=== PATIENT | male | born 1960 | race Caucasian/White ===

== ENCOUNTER 2023-02-01 19:43 | Emergency (ER) | payer MEDICARE, MEDICAID ==
[~2023-02-01] VITALS: Ht 172.7 cm; Wt 92.1 kg
[2023-02-01] MEDS ORDERED: MELOXICAM15 MG PO (21:50)
== END 2023-02-01 21:57 | disposition home or self-care (01) ==
LOC: ED 19:43
DX: M25.551 Pain in right hip (principal); M25.561 Pain in right knee; F32.A Depression, unspecified; F41.9 Anxiety disorder, unspecified; Z88.0 Allergy status to penicillin

== ENCOUNTER → 2023-04-06 | Outpatient (CLI) | payer MEDICARE ==
[~2023-04-06] MED LIST: MELOXICAM15 MG PO
[2023-04-06 09:46] LABS: BASO # 0.1 10*3/uL (0.0-0.1); BASO % 0.8 % (0.0-1.0); EOS # 0.2 10*3/uL (0.0-0.4); EOS % 2.3 % (1.0-4.0); HEMATOCRIT 39.5 % (42.0-52.0); LYMPH # 1.7 10*3/uL (1.3-4.4); MEAN CELL VOLUME 98.5 fl (80.0-94.0); MEAN CORPUSCULAR HGB 33.9 pg (27.0-31.0); MEAN CORPUSCULAR HGB CONC 34.4 g/dl (33.0-37.0); MEAN PLATELET VOLUME 10.3 fl (9.6-12.3); MONO # 0.7 10*3/uL (0.1-1.0); MONO % 9.5 % (3.0-9.0); NEUT # 4.8 10*3/uL (2.3-7.9); PLATELET COUNT AUTOMATED 195 10*3/uL (130-400); RED BLOOD COUNT 4.01 10*6/uL (4.50-5.90); RED CELL DISTRI WIDTH 11.7 % (0-14.5); WHITE BLOOD COUNT 7.4 10*3/uL (4.8-10.8)
[2023-04-06 10:31] LABS: ALKALINE PHOSPHATASE 99 U/L (46-116); BUN 6 mg/dl (9-23); CHLORIDE 100 mmol/L (98-107); CHOLESTEROL 188 mg/dL (<200); LDL CHOLESTEROL 110 mg/dL (9-159); POTASSIUM 4.1 mmol/L (3.4-5.1); SGPT/ALT 38 U/L (5-49); TOTAL PROTEIN 7.5 gm/dL (6.0-8.0); TRIGLYCERIDES 162 mg/dl (<150)
== END | disposition home or self-care (01) ==
LOC: RESCLI 01:39
PROVIDERS: Student in an Organized Health Care Education/Training Program; ATTEND Internal Medicine
DX: F41.8 Other specified anxiety disorders (principal); M54.41 Lumbago with sciatica, right side; R26.2 Difficulty in walking, not elsewhere classified; F17.220 Nicotine dependence, chewing tobacco, uncomplicated; E78.5 Hyperlipidemia, unspecified; R73.09 Other abnormal glucose; Z88.0 Allergy status to penicillin; D53.9 Nutritional anemia, unspecified; Z82.49 Family history of ischemic heart disease and other diseases of the circulatory system; Z79.899 Other long term (current) drug therapy

== ENCOUNTER 2023-04-27 20:26 | Emergency (ER) | payer MEDICARE, MEDICAID ==
[~2023-04-27] VITALS: Ht 172.7 cm; Wt 97.5 kg
[2023-04-28] MEDS ORDERED: CEPHALEXIN500 M1 PO (16:16)
== END 2023-04-27 22:30 | disposition home or self-care (01) ==
LOC: ED 20:26
DX: S91.312A Laceration without foreign body, left foot, initial encounter (principal); Z88.0 Allergy status to penicillin; W22.09XA Striking against other stationary object, initial encounter; Y93.89 Activity, other specified; Y92.89 Other specified places as the place of occurrence of the external cause; Y99.8 Other external cause status

== ENCOUNTER 2023-04-28 14:23 | Emergency (ER) | payer MEDICARE, MEDICAID ==
[~2023-04-28] VITALS: Ht 172.7 cm; Wt 97.5 kg
[2023-04-28] MEDS ORDERED: CEPHALEXIN500 M1 PO (16:16)
== END 2023-04-28 16:43 | disposition home or self-care (01) ==
LOC: ED 14:23
DX: S91.312D Laceration without foreign body, left foot, subsequent encounter (principal); L03.116 Cellulitis of left lower limb; R58 Hemorrhage, not elsewhere classified; Z88.0 Allergy status to penicillin; W22.8XXD Striking against or struck by other objects, subsequent encounter

== ENCOUNTER → 2023-05-04 | Outpatient (CLI) | payer MEDICARE, MEDICAID ==
[~2023-05-04] MED LIST changes: +CEPHALEXIN500 M1 PO
== END | disposition home or self-care (01) ==
LOC: WOUNDCARE 03:25
PROVIDERS: ATTEND Nurse Practitioner Family
DX: S91.312A Laceration without foreign body, left foot, initial encounter (principal); R60.9 Edema, unspecified; L53.9 Erythematous condition, unspecified; X58.XXXA Exposure to other specified factors, initial encounter; Y93.89 Activity, other specified; Y92.89 Other specified places as the place of occurrence of the external cause; Y99.8 Other external cause status

== ENCOUNTER → 2023-05-07 | Outpatient (CLI) | payer MEDICARE, MEDICAID ==
[2023-05-07 12:27] LABS: BASO # 0.1 10*3/uL (0.0-0.1); BASO % 0.8 % (0.0-1.0); EOS # 0.2 10*3/uL (0.0-0.4); EOS % 2.6 % (1.0-4.0); HEMATOCRIT 41.2 % (42.0-52.0); LYMPH # 1.5 10*3/uL (1.3-4.4); LYMPH % 20.9 % (27.0-41.0); MEAN CORPUSCULAR HGB 33.3 pg (27.0-31.0); MEAN CORPUSCULAR HGB CONC 33.3 g/dl (33.0-37.0); MEAN PLATELET VOLUME 10.4 fl (9.6-12.3); MONO # 0.8 10*3/uL (0.1-1.0); MONO % 10.9 % (3.0-9.0); NEUT # 4.7 10*3/uL (2.3-7.9); NEUT % 64.3 % (47.0-73.0); PLATELET COUNT AUTOMATED 194 10*3/uL (130-400); RED BLOOD COUNT 4.12 10*6/uL (4.50-5.90); WHITE BLOOD COUNT 7.4 10*3/uL (4.8-10.8)
[2023-05-07 12:50] LABS: ALKALINE PHOSPHATASE 90 U/L (46-116); BUN 6 mg/dl (9-23); CHLORIDE 104 mmol/L (98-107); POTASSIUM 4.4 mmol/L (3.4-5.1); SGPT/ALT 41 U/L (5-49); TOTAL PROTEIN 7.6 gm/dL (6.0-8.0)
== END | disposition home or self-care (01) ==
LOC: LAB 11:56
PROVIDERS: Nurse Practitioner Family
DX: E11.9 Type 2 diabetes mellitus without complications (principal); D64.9 Anemia, unspecified

== ENCOUNTER → 2023-05-11 | Outpatient (CLI) | payer MEDICARE, MEDICAID | END | disposition home or self-care (01) | LOC: WOUNDCARE 04:56 | PROVIDERS: ATTEND Nurse Practitioner Family | DX: S91.312D Laceration without foreign body, left foot, subsequent encounter (principal); L53.9 Erythematous condition, unspecified; R60.9 Edema, unspecified; X58.XXXD Exposure to other specified factors, subsequent encounter ==

== ENCOUNTER 2023-06-15 20:05 | Emergency (ER) | payer MEDICARE, OTHER ==
[~2023-06-15] VITALS: Ht 152.4 cm; Wt 88.0 kg
== END 2023-06-16 00:40 | disposition home or self-care (01) ==
LOC: ED 20:05
DX: S00.93XA Contusion of unspecified part of head, initial encounter (principal); M25.551 Pain in right hip; G89.29 Other chronic pain; F32.A Depression, unspecified; F41.9 Anxiety disorder, unspecified; Z88.0 Allergy status to penicillin; W01.10XA Fall on same level from slipping, tripping and stumbling with subsequent striking against unspecified object, initial encounter; Y93.01 Activity, walking, marching and hiking; Y92.009 Unspecified place in unspecified non-institutional (private) residence as the place of occurrence of the external cause; Y99.8 Other external cause status; F10.10 Alcohol abuse, uncomplicated; Y90.0 Blood alcohol level of less than 20 mg/100 ml

== ENCOUNTER → 2023-06-22 | Outpatient (CLI) | payer MEDICARE, OTHER | END | disposition home or self-care (01) | LOC: RESCLI 02:32 | PROVIDERS: ATTEND Internal Medicine | DX: M25.551 Pain in right hip (principal); M54.9 Dorsalgia, unspecified; E78.5 Hyperlipidemia, unspecified; R26.81 Unsteadiness on feet; F41.8 Other specified anxiety disorders; K21.9 Gastro-esophageal reflux disease without esophagitis; F32.A Depression, unspecified; Z79.899 Other long term (current) drug therapy; Z87.891 Personal history of nicotine dependence ==

== ENCOUNTER 2023-06-26 18:15 | Emergency (ER) | payer MEDICARE, OTHER ==
[~2023-06-26] VITALS: Ht 172.7 cm; Wt 93.0 kg
[2023-06-26] MEDS ORDERED: Bacitracin Zinc 14 GM TUBE T ONE (19:10)
== END 2023-06-26 19:36 | disposition home or self-care (01) ==
LOC: ED 18:15
DX: S61.011A Laceration without foreign body of right thumb without damage to nail, initial encounter (principal); F32.A Depression, unspecified; F41.9 Anxiety disorder, unspecified; Z88.0 Allergy status to penicillin; W26.8XXA Contact with other sharp object(s), not elsewhere classified, initial encounter; Y93.89 Activity, other specified; Y92.009 Unspecified place in unspecified non-institutional (private) residence as the place of occurrence of the external cause; Y99.8 Other external cause status

== ENCOUNTER 2023-08-13 13:16 | Emergency (ER) | payer MEDICARE ==
[~2023-08-13] VITALS: Ht 175.2 cm; Wt 89.4 kg
[~2023-08-13 13:16] MED LIST changes: +ATORVASTATIN CA20 M1 PO; +CYCLOBENZAPRINE5 M3 PO; +FLUOXETINE HCL40 MG PO; +NAPROXEN500 MG PO; +OMEPRAZOLE MAGN20 MG PO; +VITAMIN D3125 MC1 PO
[2023-08-13] MEDS ORDERED: MULTIVITAMIN CONCENTRATE (IV) 10 ML,Thiamine 100 MG,FOLIC ACID 1 MG in SODIUM CHLORIDE ... IV ONE (13:25)
[2023-08-13 13:47] LABS: BASO # 0.1 10*3/uL (0.0-0.1); EOS # 0.1 10*3/uL (0.0-0.4); EOS % 1.3 % (1.0-4.0); HEMATOCRIT 43.1 % (42.0-52.0); LYMPH # 2.3 10*3/uL (1.3-4.4); MEAN CELL VOLUME 102.1 fl (80.0-94.0); MEAN CORPUSCULAR HGB 33.2 pg (27.0-31.0); MEAN CORPUSCULAR HGB CONC 32.5 g/dl (33.0-37.0); MEAN PLATELET VOLUME 10.6 fl (9.6-12.3); MONO # 0.6 10*3/uL (0.1-1.0); NEUT % 56.6 % (47.0-73.0); PLATELET COUNT AUTOMATED 182 10*3/uL (130-400); RED BLOOD COUNT 4.22 10*6/uL (4.50-5.90); RED CELL DISTRI WIDTH 12.4 % (0-14.5)
[2023-08-13 14:17] LABS: BILIRUBIN Negative (Negative); BLOOD Negative (Negative); CLARITY Clear (Clear); COLOR Yellow (Yellow); GLUCOSE Negative (Negative); KETONE Trace (Negative); LEUKO ESTERASE Negative (Negative); NITRITE Negative (Negative); PH 5.5 (4.5-8.0); UROBILINOGEN 0.2 E.U./dl (0.0-1.0)
[2023-08-13 14:25] LABS: URINE AMPHETAMINES Negative (1000ng/ml); URINE BARBITURATES Negative (200ng/ml); URINE BENZODIAZEPINES Negative (200ng/ml); URINE CANNABINOIDS (THC) Positive (50ng/ml); URINE COCAINE Negative (300ng/ml); URINE METHADONE Negative (300ng/ml); URINE OPIATES Negative (300ng/ml); URINE PHENCYCLIDINE Negative (25ng/ml)
[2023-08-13 14:25] LABS: BUN 6 mg/dl (9-23); CHLORIDE 103 mmol/L (98-107); POTASSIUM 4.1 mmol/L (3.4-5.1)
[2023-08-13 14:26] LABS: MUCOUS 1+; WBC 0-2 wbc/hpf (0-5)
[2023-08-13 14:30] LABS: ETHYL ALCOHOL 351.3 mg/dl (<3)
== END 2023-08-14 10:26 | disposition home or self-care (01) ==
LOC: ED 13:16
PROVIDERS: Emergency Medicine
DX: F32.A Depression, unspecified (principal); F10.129 Alcohol abuse with intoxication, unspecified; F41.9 Anxiety disorder, unspecified; Z88.0 Allergy status to penicillin; Y90.8 Blood alcohol level of 240 mg/100 ml or more

== ENCOUNTER → 2023-08-24 | Outpatient (CLI) | payer MEDICARE, OTHER ==
[~2023-08-24] MED LIST changes: +[UNRECOGNIZED DRUG - OTHER] IM ONE
== END | disposition home or self-care (01) ==
LOC: RESCLI 03:56
PROVIDERS: ATTEND Student in an Organized Health Care Education/Training Program
DX: Z23 Encounter for immunization (principal); M17.11 Unilateral primary osteoarthritis, right knee; E78.5 Hyperlipidemia, unspecified; K21.9 Gastro-esophageal reflux disease without esophagitis; E66.9 Obesity, unspecified; F41.8 Other specified anxiety disorders; F32.A Depression, unspecified; F12.10 Cannabis abuse, uncomplicated

== ENCOUNTER → 2023-10-07 | Outpatient (CLI) | payer MEDICARE, OTHER ==
[~2023-10-07] MED LIST changes: -[UNRECOGNIZED DRUG - OTHER] IM ONE
[2023-10-07 14:14] LABS: BASO # 0.1 10*3/uL (0.0-0.1); EOS # 0.1 10*3/uL (0.0-0.4); EOS % 2.2 % (1.0-4.0); HEMATOCRIT 38.5 % (42.0-52.0); LYMPH # 1.3 10*3/uL (1.3-4.4); LYMPH % 26.7 % (27.0-41.0); MEAN CELL VOLUME 98.5 fl (80.0-94.0); MEAN CORPUSCULAR HGB 34.8 pg (27.0-31.0); MEAN CORPUSCULAR HGB CONC 35.3 g/dl (33.0-37.0); MEAN PLATELET VOLUME 10.9 fl (9.6-12.3); MONO # 0.6 10*3/uL (0.1-1.0); MONO % 11.3 % (3.0-9.0); NEUT # 2.9 10*3/uL (2.3-7.9); NEUT % 58.4 % (47.0-73.0); PLATELET COUNT AUTOMATED 148 10*3/uL (130-400); RED BLOOD COUNT 3.91 10*6/uL (4.50-5.90); RED CELL DISTRI WIDTH 13.2 % (0-14.5)
[2023-10-07 14:45] LABS: ALKALINE PHOSPHATASE 82 U/L (46-116); BUN 7 mg/dl (9-23); CHLORIDE 102 mmol/L (98-107); CHOLESTEROL 207 mg/dL (<200); LDL CHOLESTEROL 90 mg/dL (9-159); POTASSIUM 3.7 mmol/L (3.4-5.1); SGPT/ALT 47 U/L (5-49); TOTAL PROTEIN 7.6 gm/dL (6.0-8.0); TRIGLYCERIDES 130 mg/dl (<150)
== END | disposition home or self-care (01) ==
LOC: LAB 13:15
PROVIDERS: ATTEND Nurse Practitioner Family
DX: M43.17 Spondylolisthesis, lumbosacral region (principal); M25.551 Pain in right hip; R73.09 Other abnormal glucose; E78.5 Hyperlipidemia, unspecified; Z76.89 Persons encountering health services in other specified circumstances; M51.37 Other intervertebral disc degeneration, lumbosacral region

== ENCOUNTER → 2023-10-28 | Outpatient (CLI) | payer MEDICARE | END | disposition home or self-care (01) | LOC: LAB 10:54 | PROVIDERS: ATTEND Nurse Practitioner Family | DX: R32 Unspecified urinary incontinence (principal) ==

== ENCOUNTER 2023-10-29 14:32 | Emergency (ER) | payer MEDICARE ==
[~2023-10-29] VITALS: Ht 172.7 cm; Wt 77.1 kg
== END 2023-10-29 17:23 | disposition home or self-care (01) ==
LOC: ED 14:32
DX: S90.31XA Contusion of right foot, initial encounter (principal); F32.A Depression, unspecified; D64.9 Anemia, unspecified; F41.9 Anxiety disorder, unspecified; Z88.0 Allergy status to penicillin; Z87.891 Personal history of nicotine dependence; W19.XXXA Unspecified fall, initial encounter; Y93.89 Activity, other specified; Y92.39 Other specified sports and athletic area as the place of occurrence of the external cause; Y99.8 Other external cause status

== ENCOUNTER 2023-11-19 22:09 | Emergency (ER) | payer MEDICARE ==
[~2023-11-19] VITALS: Ht 172.7 cm; Wt 94.3 kg
[2023-11-19 22:59] LABS: BILIRUBIN Negative (Negative); BLOOD Negative (Negative); CLARITY Clear (Clear); COLOR Yellow (Yellow); GLUCOSE Negative (Negative); KETONE Trace (Negative); LEUKO ESTERASE Negative (Negative); NITRITE Negative (Negative); PH 5.5 (4.5-8.0); SPECIFIC GRAVITY <= 1.005 (1.001-1.030); UROBILINOGEN 0.2 E.U./dl (0.0-1.0)
[2023-11-19 23:06] LABS: URINE AMPHETAMINES Negative (1000ng/ml); URINE BARBITURATES Negative (200ng/ml); URINE BENZODIAZEPINES Negative (200ng/ml); URINE CANNABINOIDS (THC) Negative (50ng/ml); URINE COCAINE Negative (300ng/ml); URINE METHADONE Negative (300ng/ml); URINE OPIATES Negative (300ng/ml); URINE PHENCYCLIDINE Negative (25ng/ml)
[2023-11-19 23:06] LABS: BASO # 0.1 10*3/uL (0.0-0.1); BASO % 1.3 % (0.0-1.0); EOS # 0.1 10*3/uL (0.0-0.4); EOS % 1.5 % (1.0-4.0); HEMATOCRIT 40.2 % (42.0-52.0); LYMPH # 1.6 10*3/uL (1.3-4.4); LYMPH % 30.6 % (27.0-41.0); MEAN CELL VOLUME 102.8 fl (80.0-94.0); MEAN CORPUSCULAR HGB CONC 33.1 g/dl (33.0-37.0); MEAN PLATELET VOLUME 9.9 fl (9.6-12.3); MONO # 0.5 10*3/uL (0.1-1.0); NEUT # 3.1 10*3/uL (2.3-7.9); NEUT % 57.4 % (47.0-73.0); PLATELET COUNT AUTOMATED 154 10*3/uL (130-400); RED BLOOD COUNT 3.91 10*6/uL (4.50-5.90); RED CELL DISTRI WIDTH 12.8 % (0-14.5); WHITE BLOOD COUNT 5.3 10*3/uL (4.8-10.8)
[2023-11-19 23:07] LABS: WBC 0-2 wbc/hpf (0-5)
[2023-11-19 23:35] LABS: BUN 7 mg/dl (9-23); CHLORIDE 101 mmol/L (98-107); ETHYL ALCOHOL 268.9 mg/dl (<3); POTASSIUM 4.3 mmol/L (3.4-5.1)
[2023-11-19] MEDS ORDERED: SODIUM CHLORIDE 0.9% 1,000 ML IV ONE (23:40)
[2023-11-19] MEDS ORDERED: Thiamine 200 MG/2 ML VIAL IV ONE (23:40)
== END 2023-11-20 01:46 | disposition home or self-care (01) ==
LOC: ED 22:09
PROVIDERS: Internal Medicine
DX: R25.9 Unspecified abnormal involuntary movements (principal); F10.129 Alcohol abuse with intoxication, unspecified; E87.1 Hypo-osmolality and hyponatremia; D53.9 Nutritional anemia, unspecified; Z88.0 Allergy status to penicillin; Z79.899 Other long term (current) drug therapy; Y90.8 Blood alcohol level of 240 mg/100 ml or more

== ENCOUNTER 2023-12-04 10:23 | Emergency (ER) | payer MEDICARE ==
[~2023-12-04] VITALS: Ht 172.7 cm; Wt 97.5 kg
[2023-12-04 11:43] LABS: BASO # 0.1 10*3/uL (0.0-0.1); BASO % 1.6 % (0.0-1.0); EOS # 0.1 10*3/uL (0.0-0.4); EOS % 2.8 % (1.0-4.0); HEMATOCRIT 39.3 % (42.0-52.0); LYMPH # 1.4 10*3/uL (1.3-4.4); LYMPH % 31.8 % (27.0-41.0); MEAN CELL VOLUME 103.4 fl (80.0-94.0); MEAN CORPUSCULAR HGB 34.5 pg (27.0-31.0); MEAN CORPUSCULAR HGB CONC 33.3 g/dl (33.0-37.0); MEAN PLATELET VOLUME 10.1 fl (9.6-12.3); MONO # 0.7 10*3/uL (0.1-1.0); MONO % 15.2 % (3.0-9.0); NEUT # 2.1 10*3/uL (2.3-7.9); NEUT % 48.4 % (47.0-73.0); PLATELET COUNT AUTOMATED 155 10*3/uL (130-400); RED CELL DISTRI WIDTH 12.5 % (0-14.5); WHITE BLOOD COUNT 4.3 10*3/uL (4.8-10.8)
[2023-12-04 11:54] LABS: ACT PARTIAL THROMBO TIME 26.8 SECONDS (20.0-32.1)
[2023-12-04 12:00] LABS: ALKALINE PHOSPHATASE 115 U/L (46-116); BUN 6 mg/dl (9-23); CHLORIDE 102 mmol/L (98-107); POTASSIUM 4.7 mmol/L (3.4-5.1); SGPT/ALT 175 U/L (5-49); TOTAL PROTEIN 7.2 gm/dL (6.0-8.0)
[2023-12-05 07:07] LABS: HBSAG Negative (Negative); HEP B CORE AB, IGM Negative (Negative); HEPATITIS C ANTIBODY Non Reactive (Non Reactive)
== END 2023-12-04 14:41 | disposition home or self-care (01) ==
LOC: ED 10:23
PROVIDERS: Nurse Practitioner
DX: S70.11XA Contusion of right thigh, initial encounter (principal); S70.02XA Contusion of left hip, initial encounter; S30.810A Abrasion of lower back and pelvis, initial encounter; R74.01 Elevation of levels of liver transaminase levels; F32.A Depression, unspecified; F41.9 Anxiety disorder, unspecified; F10.10 Alcohol abuse, uncomplicated; Z88.0 Allergy status to penicillin; X58.XXXA Exposure to other specified factors, initial encounter; Y93.89 Activity, other specified; Y92.89 Other specified places as the place of occurrence of the external cause; Y99.8 Other external cause status

== ENCOUNTER 2024-01-04 23:58 | Emergency (ER) | payer MEDICARE ==
[~2024-01-04] VITALS: Ht 177.8 cm; Wt 90.3 kg
[2024-01-05 00:25] LABS: BASO # 0.1 10*3/uL (0.0-0.1); BASO % 1.7 % (0.0-1.0); EOS # 0.1 10*3/uL (0.0-0.4); EOS % 1.2 % (1.0-4.0); HEMATOCRIT 41.4 % (42.0-52.0); LYMPH # 2.7 10*3/uL (1.3-4.4); LYMPH % 46.3 % (27.0-41.0); MEAN CELL VOLUME 100.5 fl (80.0-94.0); MEAN CORPUSCULAR HGB CONC 33.8 g/dl (33.0-37.0); MEAN PLATELET VOLUME 9.5 fl (9.6-12.3); MONO # 0.6 10*3/uL (0.1-1.0); MONO % 10.7 % (3.0-9.0); NEUT # 2.4 10*3/uL (2.3-7.9); NEUT % 39.9 % (47.0-73.0); PLATELET COUNT AUTOMATED 190 10*3/uL (130-400); RED BLOOD COUNT 4.12 10*6/uL (4.50-5.90); RED CELL DISTRI WIDTH 12.3 % (0-14.5); WHITE BLOOD COUNT 5.9 10*3/uL (4.8-10.8)
[2024-01-05 00:54] LABS: ALKALINE PHOSPHATASE 100 U/L (46-116); BUN 5 mg/dl (9-23); CHLORIDE 98 mmol/L (98-107); LIPASE 70 U/L (12-53); POTASSIUM 4.1 mmol/L (3.4-5.1); SGPT/ALT 89 U/L (5-49); TOTAL PROTEIN 7.7 gm/dL (6.0-8.0)
[2024-01-05] MEDS ORDERED: SODIUM CHLORIDE 0.9% 1,000 ML IV ONE (01:10)
[2024-01-05] MEDS ORDERED: Thiamine 200 MG/2 ML VIAL IV ONE (01:10)
== END 2024-01-05 08:37 | disposition home or self-care (01) ==
LOC: ED 23:58
PROVIDERS: Internal Medicine
DX: F10.129 Alcohol abuse with intoxication, unspecified (principal); M25.552 Pain in left hip; M25.551 Pain in right hip; R07.81 Pleurodynia; F32.A Depression, unspecified; F41.9 Anxiety disorder, unspecified; Z79.899 Other long term (current) drug therapy; Z88.0 Allergy status to penicillin; Y90.8 Blood alcohol level of 240 mg/100 ml or more

== ENCOUNTER 2024-01-09 21:49 | Emergency (ER) | payer MEDICARE ==
[~2024-01-09] VITALS: Ht 172.7 cm; Wt 88.9 kg
[2024-01-09] MEDS ORDERED: IBUPROFEN 400 MG TAB PO ONE (23:55)
== END 2024-01-10 01:32 | disposition home or self-care (01) ==
LOC: ED 21:49
DX: S01.01XA Laceration without foreign body of scalp, initial encounter (principal); F32.A Depression, unspecified; F41.9 Anxiety disorder, unspecified; Z88.0 Allergy status to penicillin; W19.XXXA Unspecified fall, initial encounter; Y93.89 Activity, other specified; Y92.59 Other trade areas as the place of occurrence of the external cause; Y99.8 Other external cause status

== ENCOUNTER 2024-01-14 10:52 | Emergency (ER) | payer MEDICARE ==
[~2024-01-14] VITALS: Wt 95.3 kg
== END 2024-01-14 13:17 | disposition home or self-care (01) ==
LOC: ED 10:52
DX: S01.01XD Laceration without foreign body of scalp, subsequent encounter (principal); G89.29 Other chronic pain; M25.551 Pain in right hip; R60.0 Localized edema; F32.A Depression, unspecified; F41.9 Anxiety disorder, unspecified; R73.9 Hyperglycemia, unspecified; Z88.0 Allergy status to penicillin; X58.XXXD Exposure to other specified factors, subsequent encounter

== ENCOUNTER → 2024-02-15 | Outpatient (CLI) | payer MEDICARE ==
[~2024-02-15] MED LIST changes: +LEVETIRACETAM500 MG PO
[2024-02-15 10:58] LABS: BASO % 0.8 % (0.0-1.0); EOS # 0.2 10*3/uL (0.0-0.4); EOS % 4.1 % (1.0-4.0); HEMATOCRIT 41.7 % (42.0-52.0); LYMPH # 1.2 10*3/uL (1.3-4.4); LYMPH % 23.5 % (27.0-41.0); MEAN CELL VOLUME 100.2 fl (80.0-94.0); MEAN CORPUSCULAR HGB 33.7 pg (27.0-31.0); MEAN CORPUSCULAR HGB CONC 33.6 g/dl (33.0-37.0); MEAN PLATELET VOLUME 10.6 fl (9.6-12.3); MONO # 0.6 10*3/uL (0.1-1.0); MONO % 12.5 % (3.0-9.0); NEUT % 58.9 % (47.0-73.0); PLATELET COUNT AUTOMATED 142 10*3/uL (130-400); RED BLOOD COUNT 4.16 10*6/uL (4.50-5.90); RED CELL DISTRI WIDTH 11.9 % (0-14.5); WHITE BLOOD COUNT 5.1 10*3/uL (4.8-10.8)
[2024-02-15 11:24] LABS: ALKALINE PHOSPHATASE 95 U/L (46-116); BUN 5 mg/dl (9-23); CHLORIDE 100 mmol/L (98-107); POTASSIUM 4.8 mmol/L (3.4-5.1); SGPT/ALT 146 U/L (5-49); TOTAL PROTEIN 7.2 gm/dL (6.0-8.0)
== END | disposition home or self-care (01) ==
LOC: LAB 10:32
PROVIDERS: ATTEND Nurse Practitioner Family
DX: D53.9 Nutritional anemia, unspecified (principal); R73.09 Other abnormal glucose; F10.20 Alcohol dependence, uncomplicated

== ENCOUNTER → 2024-03-03 | Outpatient (CLI) | payer MEDICARE ==
[2024-03-03 10:46] LABS: BUN 6 mg/dl (9-23); CHLORIDE 103 mmol/L (98-107); POTASSIUM 4.1 mmol/L (3.4-5.1)
== END | disposition home or self-care (01) ==
LOC: LAB 09:29
PROVIDERS: Internal Medicine; ATTEND Nurse Practitioner Family
DX: R60.9 Edema, unspecified (principal)